=== PATIENT | male | born 1980 | race Two or more races ===

== ENCOUNTER 2021-12-10 09:01 | Emergency (ER) | payer OTHER ==
[~2021-12-10] VITALS: Ht 167.6 cm; Wt 89.8 kg
[2021-12-10 09:14] VITALS: BP 149/107
[2021-12-10] MEDS ORDERED: cefTRIAXone SOD 1,000 MG VL IM ONE (10:00)
[2021-12-10] MEDS ORDERED: AZIT500T66 PO (10:16)
[2021-12-10] MEDS ORDERED: IBUP800T27 PO (10:16)
== END 2021-12-10 10:27 | disposition home or self-care (01) ==
LOC: ER 09:09
DX: J03.90 Acute tonsillitis, unspecified (principal); I10 Essential (primary) hypertension; Z79.1 Long term (current) use of non-steroidal anti-inflammatories (NSAID); Z79.2 Long term (current) use of antibiotics
CPT/HCPCS: 96372; 99283; J0696

== ENCOUNTER → 2022-05-01 | Emergency (ER) | payer OTHER ==
[~2022-05-01] VITALS: Ht 167.6 cm; Wt 92.0 kg
[~2022-05-01] MED LIST: AZIT500T66 PO; IBUP800T27 PO; cloNIDine HCL 0.1 MG TAB PO ONE
[2022-05-01 15:53] LABS: Basophils # (auto) 0 10 ^3/uL (0-0.2); Basophils % (auto) 0.8 % (0.0-2.0); Eosinophils # (auto) 0.1 10 ^3/uL (0-0.8); Eosinophils % (auto) 1.7 % (0.0-7.0); Hematocrit 47.8 % (41.0-53.0); Hemoglobin 16.1 g/dL (13.5-17.5); Lymphocytes # (auto) 1.6 10 ^3/uL (0.4-5.4); Mean Corpuscular Hemoglobin 30.2 pg (28.0-32.0); Mean Corpuscular Hgb Conc. 33.6 g/dL (32.0-36.0); Mean Corpuscular Volume 89.8 fL (80.0-100.0); Monocytes # (auto) 0.4 10 ^3/uL (0-1.3); Monocytes % (auto) 8.5 % (0.0-12.0); Neutrophils # (auto) 2.2 10 ^3/uL (1.6-8.6); Nucleated Red Blood Cells % 0.2 %; Red Blood Cells 5.32 10^6/uL (4.5-5.90); Red Cell Distribution Width 13.6 % (11.8-14.3); White Blood Cell 4.3 10^3/uL (4.4-10.8)
[2022-05-01 16:05] LABS: BUN/Creatinine Ratio 14.4; Potassium 4.6 mmol/L (3.5-5.1)
[2022-05-01 16:06] LABS: Albumin 4.4 g/dL (3.4-5.0); Calcium 9.4 mg/dL (8.5-10.1); Magnesium 2.4 mg/dL (1.6-2.6)
[2022-05-01 16:08] LABS: Bilirubin, Total 1.3 mg/dL (0.2-1.0); Total Protein 8.3 g/dL (6.4-8.2)
[2022-05-01 18:32] VITALS: BP 144/99
== END | disposition home or self-care (01) ==
LOC: ER 15:01
DX: R07.89 Other chest pain (principal); I16.0 Hypertensive urgency; F12.90 Cannabis use, unspecified, uncomplicated; I10 Essential (primary) hypertension; Z98.890 Other specified postprocedural states
CPT/HCPCS: 36415; 71046; 80053; 83735; 84484; 85025; 93005